=== PATIENT | female | born 1960 | race African-American/Black ===

== ENCOUNTER 2019-09-04 08:00 | Inpatient (IN) | payer BC ==
[2019-08-29 11:22] VITALS: BMI 44.2
[2019-09-04] MEDS ORDERED: MIDAZOLAM HCL 2 MG/2 ML SINGLE DOSE VIAL ONE (13:01)
[2019-09-04] MEDS ORDERED: ROCURONIUM BROMIDE 50 MG/5 ML SYRINGE ONE ×2 (13:01→15:52)
[2019-09-04] MEDS ORDERED: PROPOFOL 20 ML ONE (13:01)
[2019-09-04] MEDS ORDERED: DEXTROSE 50%-WATER 25 GM/50 ML DISP.SYRIN ONE (13:13)
[2019-09-04] MEDS ORDERED: DEXTROSE 50%-WATER 25 GM/50 ML DISP.SYRIN IVPUSH ONE (13:15)
[2019-09-04] MEDS ORDERED: BUPIVACAINE HCL/PF 0.25% (2.5MG/ML) 10 ML VIAL ONE (13:24)
[2019-09-04] MEDS ORDERED: ceFAZolin SODIUM 1 GM VIAL IVPB ONE (14:05)
[2019-09-04] MEDS ORDERED: DEXAMETHASONE SOD PHOSPHATE 4 MG/1 ML VIAL ONE (14:07)
[2019-09-04] MEDS ORDERED: ceFAZolin SODIUM 1 GM VIAL ONE (14:07)
[2019-09-04] MEDS ORDERED: EPHEDRINE SULFATE/0.9% NACL/PF 50 MG/10 ML SYRINGE NR ONE (14:15)
[2019-09-04] MEDS ORDERED: BUPIVACAINE HCL/PF 2.5 MG/ML - 30 ML VIAL IJ ONE (14:46)
[2019-09-04] MEDS ORDERED: ONDANSETRON 4 MG/2 ML VIAL IVPUSH PRN ×2 (15:14→17:01)
[2019-09-04] MEDS ORDERED: LACTATED RINGERS SOLUTION 1,000 ML IV SCH (15:15)
[2019-09-04] MEDS ORDERED: NEOSTIGMINE METHYLSULFATE 0.5 MG/ML - 10 ML MDV ONE (16:43)
[2019-09-04] MEDS ORDERED: GLYCOPYRROLATE 0.2 MG/1 ML VIAL ONE (16:43)
[2019-09-04] MEDS ORDERED: BUPIVACAINE HCL/PF 0.25% (2.5MG/ML) 10 ML VIAL IJ ONE (16:45)
--- NOTE | 2019-09-04 17:15 | OP ---
Operative Note - Note: Operative Date: 09/04/19 Pre-Operative Diagnosis: Morbid Obesity. Diabetes Mellitus. Coronary Artery Disease. Elevated Liver function tests Operation: Laparoscopic Vertical Sleeve Gastrectomy. Wedge Biopsy of left lobe of liver. Laparoscopic Lysis of Adhesions. Oversewing of Gastric Staple Line. Diagnostic Laparoscopy Findings: Massive adhesions between left lobe of liver and anterior stomach secondary to previous gastric surgery. Adhesions were dense and unable to separate distally in Antrum without risk of injury to the stomach wall. Vertical sleeve gastrectomy performed vertically and begun at beginning of antrum. Left lobe of liver very enlarged. Post-Operative Diagnosis: Same as Pre-op (Abdominal adhesions; Hepatomegaly) Surgeon: Juma Rangel Tobacco Primer Machine Operator: Kuldip Wilde Anesthesia: General Specimens Removed: Greater curve of stomach. Wedge biopsy of left lobe of liver Estimated Blood Loss (mls): 30 Operative Report Dictated: Yes
[2019-09-04] MEDS ORDERED: ACETAMINOPHEN INJECTION 100 ML IVPB ONE (17:36)
[2019-09-04] MEDS: ACETAMINOPHEN 1000 MG/100 ML VIAL (NON FORMULARY) IVPB SCH ×2 (17:50→21:37)
[2019-09-04] MEDS: METOCLOPRAMIDE HCL INJECTION 10 MG/2 ML VIAL IVPUSH SCH ×3 (18:15→23:16)
[2019-09-04] MEDS ORDERED: METOCLOPRAMIDE HCL INJECTION 10 MG/2 ML VIAL ONE (18:16)
[2019-09-04 18:23] LABS: HEMATOCRIT 34.1 % (32.4-45.2); HEMOGLOBIN 10.6 GM/dL (10.7-15.3); MCH 29.8 pg (25.7-33.7); MCHC 31.3 g/dl (32.0-36.0); MEAN CELL VOLUME 95.5 fl (80-96); MEAN PLT VOLUME 10.7 fl (7.5-11.1); PLATELET COUNT 191 K/MM3 (134-434); RBC 3.57 M/mm3 (3.60-5.2); RDW 14.9 % (11.6-15.6); WHITE BLOOD COUNT 8.4 K/mm3 (4.0-10.0)
[2019-09-04 18:56] LABS: ALBUMIN 3.5 g/dl (3.4-5.0); BILIRUBIN,TOTAL 0.3 mg/dL (0.2-1); BLOOD UREA NITROGEN 45.3 mg/dL (7-18); CREATININE 1.9 mg/dL (0.55-1.3); POTASSIUM 5.6 mmol/L (3.5-5.1); TOT PROT 7.4 g/dl (6.4-8.2)
[2019-09-04] MEDS: HYDROmorphone HCl 2 MG/ML VIAL IVPB PRN ×2 (19:15→23:25)
[2019-09-04] MEDS ORDERED: HYDROmorphone HCl 2 MG/ML VIAL ONE (19:29)
[2019-09-04] MEDS: SODIUM CHLORIDE 1,000 ML IV SCH (21:36)
[2019-09-04] MEDS: FAMOTIDINE 20 MG/50 ML IVPB 20 MG/50 ML MG IVPB SCH (21:38)
[2019-09-05] MEDS: SODIUM CHLORIDE 1,000 ML IV SCH ×2 (00:15→09:53)
[2019-09-05 01:11] LABS: HEMATOCRIT 34.5 % (32.4-45.2); HEMOGLOBIN 10.6 GM/dL (10.7-15.3); MCH 29.6 pg (25.7-33.7); MCHC 30.7 g/dl (32.0-36.0); MEAN CELL VOLUME 96.5 fl (80-96); PLATELET COUNT 204 K/MM3 (134-434); RBC 3.58 M/mm3 (3.60-5.2); RDW 14.9 % (11.6-15.6); WHITE BLOOD COUNT 12.2 K/mm3 (4.0-10.0)
[2019-09-05 01:37] LABS: ALBUMIN 3.5 g/dl (3.4-5.0); BILIRUBIN,TOTAL 0.3 mg/dL (0.2-1); BLOOD UREA NITROGEN 42.2 mg/dL (7-18); CALCIUM 9.1 mg/dL (8.5-10.1); CREATININE 1.8 mg/dL (0.55-1.3); TOT PROT 7.5 g/dl (6.4-8.2)
[2019-09-05 01:50] LABS: POTASSIUM 6.1 mmol/L (3.5-5.1)
[2019-09-05] MEDS ORDERED: SODIUM POLYSTYRENE SULFONATE 15 GM/60 ML BOTTLE RC ONE (02:07)
[2019-09-05] MEDS ORDERED: SODIUM POLYSTYRENE SULFONATE 15 GM/60 ML BOTTLE PO ONE (02:07)
[2019-09-05] MEDS: ACETAMINOPHEN 1000 MG/100 ML VIAL (NON FORMULARY) IVPB SCH ×3 (03:18→16:59)
[2019-09-05] MEDS: METOCLOPRAMIDE HCL INJECTION 10 MG/2 ML VIAL IVPUSH SCH ×3 (06:06→16:59)
[2019-09-05] MEDS: HYDROmorphone HCl 2 MG/ML VIAL IVPB PRN ×2 (06:17→21:09)
--- NOTE | 2019-09-05 07:55 | SURG ---
Surgery Dial Mounter Note Dial Mounter: Kuldip Wilde PA-C (Suzy) Date of Service: 09/04/19 Diagnosis: morbid obesity, diabetes, coronary artery disease, elevated liver enzymes Procedure: Laparoscopic Vertical Sleeve Gastrectomy. Wedge Biopsy of left lobe of liver. Laparoscopic Lysis of Adhesions. Oversewing of Gastric Staple Line. Diagnostic Laparoscopy I was present for the entirety of the operative procedure. For further detail, please refer to operative report. Visit type - Case Type Case Type: Scheduled - Emergency Emergency Visit: No - New patient This patient is new to me today: Yes Date on this admission: 09/05/19 - Critical Care Critical Care patient: No
[2019-09-05 08:20] LABS: HEMATOCRIT 33.3 % (32.4-45.2); HEMOGLOBIN 10.1 GM/dL (10.7-15.3); MCH 29.3 pg (25.7-33.7); MCHC 30.4 g/dl (32.0-36.0); MEAN CELL VOLUME 96.3 fl (80-96); MEAN PLT VOLUME 10.7 fl (7.5-11.1); PLATELET COUNT 215 K/MM3 (134-434); RBC 3.46 M/mm3 (3.60-5.2); RDW 15.3 % (11.6-15.6)
[2019-09-05 08:29] LABS: ALBUMIN 3.4 g/dl (3.4-5.0); BILIRUBIN,TOTAL 0.5 mg/dL (0.2-1); BLOOD UREA NITROGEN 41.6 mg/dL (7-18); CALCIUM 8.8 mg/dL (8.5-10.1); CREATININE 1.8 mg/dL (0.55-1.3); POTASSIUM 5.8 mmol/L (3.5-5.1); TOT PROT 7.6 g/dl (6.4-8.2)
[2019-09-05] MEDS: FAMOTIDINE 20 MG/50 ML IVPB 20 MG/50 ML MG IVPB SCH ×2 (09:54→21:08)
--- NOTE | 2019-09-05 10:21 | CON.CARD ---
Consult Consult Specialty:: Cardiology Referred by:: Dr. Rangel Reason for Consultation:: Cardiac evaluation for CAD, s/p gastric sleeve - History of Present Illness Chief Complaint: Elective gastric sleeve History of Present Illness: 58 year-old obese woman with a PMHx of HTN, DM on insulin, HLD, CAD s/p mid LAD PCI-MICHELLE 04/22/18, s/p toe amputation, right eye blindness s/p sleeve gastrectomy in 2016 in [facility] and OA admitted 09/04/19 for elective sleeve gastrectomy. He was seen and cleared by Dr. Srinivasan on 08/25/19. The patient underwent laparoscopic vertical sleeve gastrectomy, wedge biopsy of left liver and lysis of adhesion 09/05/19. She tolerated the operation well. The patient appears comfortable at the time of exam. She has mild LUQ pain. She reports no chest pain, shortness of breath, palpitation or dizziness. Cardiac tests: Echo 03/29/18: Normal LV size, wall motion and systolic function. LVEF = 65%. Normal RV. Normal LA and RA in size. No significant valvular abnormalities. Treadmill exercise nuclear stress test 03/29/18: Small and mild reversible defect in the mid to distal anterior wall. Normal LV systolic function. LVEF 57%. Cardiac cath 04/22/18: Moderate distal left main and one vessel CAD:Distal LMCA with eccentric 50% stenosis. LAD with mild-moderate disease at prox vessel (MLA 3.9 mm2), severe stenosis at mid LAD (MLA 1.06 mm2). Large Diag1 with moderate disease. Large ramus is patent. True LCX is small with moderate disease in small OM1.RCA with early bifurcation, moderate lesions at mid and distal RCA and at PDA. Successful OCT guided precision PCI of mid LAD with MICHELLE Synergy 3.0/38 mm stent, post-dilated with 3.0,3.5 and POT with 4.0 mm NC balloons. - History Source History Provided By: Patient, Medical Record Limitations to Obtaining History: No Limitations - Past Medical History Cardio/Vascular: Yes: CAD, HTN Hepatobiliary: Yes: Other Musculoskeletal: Yes: Osteoarthritis - Smoking History Smoking history: Never smoked Have you smoked in the past 12 months: No Home Medications - Allergies Allergies/Adverse Reactions: Allergies Allergy/AdvReac Type Severity Reaction Status Date / Time No Known Allergies Allergy Verified 09/04/19 11:41 - Home Medications Home Medications: Ambulatory Orders Aspirin [Aspirin EC] 81 mg PO DAILY 08/29/19 Atorvastatin Ca [Lipitor] 20 mg PO HS 08/29/19 Cyanocobalamin (Vitamin B-12) [Vitamin B12] 1 tab PO DAILY 08/29/19 Gabapentin 900 mg PO HS 08/29/19 Gabapentin [Neurontin -] 300 mg PO BID 08/29/19 Insulin Aspart [Novolog] 20 unit SQ AC 08/29/19 Insulin Glargine,Hum.rec.anlog [Lantus] 50 iu SQ HS 08/29/19 Lisinopril 10 mg PO DAILY 08/29/19 Multivitamins [Tab-A-Vit -] 1 tab PO DAILY 08/29/19 Review of Systems - Review of Systems Constitutional: reports: No Symptoms Eyes: reports: No Symptoms HENT: reports: No Symptoms Neck: reports: No Symptoms Cardiovascular: reports: No Symptoms Respiratory: reports: No Symptoms Gastrointestinal: reports: Abdominal Pain Genitourinary: reports: No Symptoms Breasts: reports: No Symptoms Reported Musculoskeletal: reports: No Symptoms Integumentary: reports: No Symptoms Neurological: reports: No Symptoms Endocrine: reports: No Symptoms Hematology/Lymphatic: reports: No Symptoms Vital Signs: Vital Signs Temperature 98.1 F 09/05/19 06:00 Pulse Rate 80 09/05/19 06:00 Respiratory Rate 18 09/05/19 06:00 Blood Pressure 139/62 09/05/19 06:00 O2 Sat by Pulse Oximetry (%) 100 09/05/19 01:00 General: Well developed. Obese. No acute distress. Head: Normocephalic. Atraumatic, Eyes: PERRLA, EOMI. Sclerae anicteric. Conjunctivae clear. Neck: Supple. No JVD. No bruits. Heart: Normal S1, S2: Regular rhythm and rate. No murmur. No gallop or rub. Lungs: Symmetrical air entry. Clear to auscultation. No crackles. No wheezing or rhonchi. Abdomen: Soft. Diffuse tenderness. Extremities: No edema. No clubbing or cyanosis. Neuro: Intact, no focal findings. AAO X3. - Other Data Labs, Other Data: CBC, BMP 09/05/19 05:45 09/05/19 05:45 Assessment/Plan 58 year-old obese woman with a PMHx of HTN, DM on insulin, HLD, CAD s/p mid LAD PCI-MICHELLE 04/22/18, s/p toe amputation, right eye blindness s/p sleeve gastrectomy in 2015 in [facility] and OA admitted 09/04/19 for elective sleeve gastrectomy. He was seen and cleared by Dr. Srinivasan on 08/25/19. The patient underwent laparoscopic vertical sleeve gastrectomy, wedge biopsy of left liver and lysis of adhesion 09/05/19. 1) Post elective aparoscopic vertical sleeve gastrectomy, wedge biopsy of left liver and lysis of adhesion. Doing well. 2) CAD, s/p mid LAD PCI-MICHELLE 04/22/18. No recurrent chest pain. Obtaine post op ECG. Resume aspirin and atorvastatin.
--- NOTE | 2019-09-05 10:54 | HP ---
Admitting History and Physical - Primary Care Physician PCP: Edie Pierre - Admission Chief Complaint: S/P sleeve gastrectomy History of Present Illness: 58 year-old obese woman with a PMHx of HTN, DM on insulin, HLD, CAD s/p mid LAD PCI-MICHELLE 04/22/18, s/p toe amputation, right eye blindness s/p sleeve gastrectomy in 2016 in [facility] and OA admitted 09/04/19 for elective sleeve gastrectomy. Operative Date: 09/04/19 Pre-Operative Diagnosis: Morbid Obesity. Diabetes Mellitus. Coronary Artery Disease. Elevated Liver function tests Operation: Laparoscopic Vertical Sleeve Gastrectomy. Wedge Biopsy of left lobe of liver. Laparoscopic Lysis of Adhesions. Oversewing of Gastric Staple Line. Diagnostic Laparoscopy Findings: Massive adhesions between left lobe of liver and anterior stomach secondary to previous gastric surgery. Adhesions were dense and unable to separate distally in Antrum without risk of injury to the stomach wall. Vertical sleeve gastrectomy performed vertically and begun at beginning of antrum. Left lobe of liver very enlarged. Post-Operative Diagnosis: Same as Pre-op (Abdominal adhesions; Hepatomegaly) History Source: Patient, Medical Record Limitations to Obtaining History: No Limitations - Past Medical History Cardiovascular: Yes: CAD, HTN Hepatobiliary: Yes: Other Musculoskeletal: Yes: Osteoarthritis - Smoking History Smoking history: Never smoked Have you smoked in the past 12 months: No Home Medications - Allergies Allergies/Adverse Reactions: Allergies Allergy/AdvReac Type Severity Reaction Status Date / Time No Known Allergies Allergy Verified 09/04/19 11:41 - Home Medications Home Medications: Ambulatory Orders Aspirin [Aspirin EC] 81 mg PO DAILY 08/29/19 Atorvastatin Ca [Lipitor] 20 mg PO HS 08/29/19 Cyanocobalamin (Vitamin B-12) [Vitamin B12] 1 tab PO DAILY 08/29/19 Gabapentin 900 mg PO HS 08/29/19 Gabapentin [Neurontin -] 300 mg PO BID 08/29/19 Insulin Aspart [Novolog] 20 unit SQ AC 08/29/19 Insulin Glargine,Hum.rec.anlog [Lantus] 50 iu SQ HS 08/29/19 Lisinopril 10 mg PO DAILY 08/29/19 Multivitamins [Tab-A-Vit -] 1 tab PO DAILY 08/29/19 Review of Systems Findings/Remarks: C/O LUQ post op pain. Denies any N/V Had 2 BM's overnight due to Kayexalate - Review of Systems Constitutional: reports: No Symptoms Eyes: reports: No Symptoms HENT: reports: No Symptoms Neck: reports: No Symptoms Cardiovascular: reports: No Symptoms Respiratory: reports: No Symptoms Gastrointestinal: reports: Abdominal Pain Genitourinary: reports: No Symptoms Breasts: reports: No Symptoms Reported Musculoskeletal: reports: No Symptoms Integumentary: reports: No Symptoms Neurological: reports: No Symptoms Endocrine: reports: No Symptoms Hematology/Lymphatic: reports: No Symptoms Psychiatric: reports: No Symptoms Physical Examination Vital Signs: Vital Signs Temperature 98.0 F 09/05/19 10:00 Pulse Rate 71 09/05/19 10:00 Respiratory Rate 18 09/05/19 10:00 Blood Pressure 137/82 09/05/19 10:00 O2 Sat by Pulse Oximetry (%) 94 L 09/05/19 09:00 Constitutional: Yes: Well Nourished, No Distress, Calm, Obese Cardiovascular: Yes: Regular Rate and Rhythm Respiratory: Yes: Regular, CTA Bilaterally Gastrointestinal: Yes: Soft, Abdomen, Obese, Hypoactive Bowel Sounds Renal/: Yes: WNL Musculoskeletal: Yes: Muscle Weakness Extremities: Yes: WNL Edema: No Neurological: Yes: Alert, Oriented Psychiatric: Yes: Alert, Oriented Labs: CBC, BMP 09/05/19 05:45 09/05/19 05:45 Imaging - Results Other: Pending (GI series- negative for any leaks) Problem List - Problems (1) HAROLDO (acute kidney injury) Assessment/Plan: -Baseline Cr at 1.2 -Nephrology consult -Continue IVF -Renal U/S Problems reviewed: Yes Code(s): N17.9 - ACUTE KIDNEY FAILURE, UNSPECIFIED (2) Hyperkalemia Assessment/Plan: -Receive kayexalate overnight -Had 2 BM's yesterday -K is still elevated -Clear liquid lo0w K diet -Lokelma 10 mg once -nephrology consult Problems reviewed: Yes Code(s): E87.5 - HYPERKALEMIA (3) S/P laparoscopic sleeve gastrectomy Assessment/Plan: -Surgery following -Start Clear Liquids -GI series negative for any leak -Pain control Problems reviewed: Yes Code(s): Z98.84 - BARIATRIC SURGERY STATUS (4) Elevated LFTs Assessment/Plan: -Baseline normal -Enlarged fatty liver -Also Liver injury 2/2 to liver biopsy Problems reviewed: Yes Code(s): R79.89 - OTHER SPECIFIED ABNORMAL FINDINGS OF BLOOD CHEMISTRY (5) Anemia Assessment/Plan: -Chronic -H/H stable -Check iron, thyroid profile + B12 Problems reviewed: Yes Code(s): D64.9 - ANEMIA, UNSPECIFIED Assessment/Plan See problem list
[2019-09-05] MEDS: POLYETHYLENE GLYCOL 3350 119 GM BTL PO SCH (11:52)
[2019-09-05] MEDS ORDERED: SODIUM ZIRCONIUM CYCLOSILICATE (LOKELMA) 10 GM PACKET PO ONE (12:00)
[2019-09-05] MEDS ORDERED: SODIUM ZIRCONIUM CYCLOSILICATE (LOKELMA) 5 GM PACKET PO ONE (12:00)
[2019-09-05] MEDS ORDERED: SODIUM CHLORIDE 0.45% 1,000 ML IV SCH (13:00)
--- NOTE | 2019-09-05 13:32 | CONSULT ---
Consult Consult Specialty:: Nephrology Reason for Consultation:: hyperkalemia and haroldo - History of Present Illness Chief Complaint: s/p gastric sleave History of Present Illness: Pt is a 58 year old female with pmhx of htn, dm, cad who was admitted for sleeve gastrectomy. She was found to develop haroldo and found to have hyperkalemia and I was called to evaluate her. She denies shortness of breath. SHe denies chest pain or palpitations. SHe denies history of ckd. She denies dysuria or hematuria. SHe is awake and alert. She denies chest pain or palpitations. She was on lisinopril at home. - History Source History Provided By: Patient - Past Medical History Cardio/Vascular: Yes: CAD, HTN Hepatobiliary: Yes: Other Musculoskeletal: Yes: Osteoarthritis - Smoking History Smoking history: Never smoked Have you smoked in the past 12 months: No Home Medications - Allergies Allergies/Adverse Reactions: Allergies Allergy/AdvReac Type Severity Reaction Status Date / Time No Known Allergies Allergy Verified 09/04/19 11:41 - Home Medications Home Medications: Ambulatory Orders Aspirin [Aspirin EC] 81 mg PO DAILY 08/29/19 Atorvastatin Ca [Lipitor] 20 mg PO HS 08/29/19 Cyanocobalamin (Vitamin B-12) [Vitamin B12] 1 tab PO DAILY 08/29/19 Gabapentin 900 mg PO HS 08/29/19 Gabapentin [Neurontin -] 300 mg PO BID 08/29/19 Insulin Aspart [Novolog] 20 unit SQ AC 08/29/19 Insulin Glargine,Hum.rec.anlog [Lantus] 50 iu SQ HS 08/29/19 Lisinopril 10 mg PO DAILY 08/29/19 Multivitamins [Tab-A-Vit -] 1 tab PO DAILY 08/29/19 Family Medical History Family History: Denies Review of Systems - Review of Systems Constitutional: reports: No Symptoms Eyes: reports: No Symptoms HENT: reports: No Symptoms Neck: reports: No Symptoms Cardiovascular: reports: No Symptoms Respiratory: reports: No Symptoms Gastrointestinal: reports: No Symptoms Genitourinary: reports: No Symptoms Musculoskeletal: reports: No Symptoms Integumentary: reports: No Symptoms Neurological: reports: No Symptoms Endocrine: reports: No Symptoms Hematology/Lymphatic: reports: No Symptoms Psychiatric: reports: No Symptoms Physical Exam Vital Signs: Vital Signs Temperature 98.0 F 09/05/19 10:00 Pulse Rate 71 09/05/19 10:00 Respiratory Rate 18 09/05/19 10:00 Blood Pressure 137/82 09/05/19 10:00 O2 Sat by Pulse Oximetry (%) 94 L 09/05/19 09:00 Constitutional: Yes: Calm Eyes: Yes: Conjunctiva Clear HENT: Yes: Atraumatic Cardiovascular: Yes: S1, S2 Respiratory: Yes: CTA Bilaterally Gastrointestinal: Yes: Soft Renal/: Yes: WNL Musculoskeletal: Yes: WNL Edema: No Neurological: Yes: Oriented Psychiatric: Yes: Oriented Labs: CBC, BMP 09/05/19 05:45 09/05/19 05:45 Imaging - Results X-ray: Report Reviewed Problem List - Problems (1) HAROLDO (acute kidney injury) Code(s): N17.9 - ACUTE KIDNEY FAILURE, UNSPECIFIED (2) Anemia Code(s): D64.9 - ANEMIA, UNSPECIFIED (3) Hyperkalemia Code(s): E87.5 - HYPERKALEMIA (4) S/P laparoscopic sleeve gastrectomy Code(s): Z98.84 - BARIATRIC SURGERY STATUS Assessment/Plan Current Medications Generic Name Dose Route Start Last Admin Trade Name Freq PRN Reason Stop Dose Admin Acetaminophen 1,000 mg 09/04/19 15:15 09/05/19 09:54 Ofirmev Injection - IVPB 09/05/19 15:15 1,000 mg Q6H BIJAN Administration Famotidine/Sodium Chloride 20 mg in 50 mls @ 100 mls/hr 09/04/19 22:00 09/05/19 09:54 Pepcid 20 Mg Premixed Ivpb - IVPB 100 mls/hr BID BIJAN Administration Sodium Chloride 1,000 mls @ 125 mls/hr 09/05/19 13:00 09/05/19 13:35 1/2 Normal Saline IV 125 mls/hr ASDIR BIJAN Administration Metoclopramide HCl 10 mg 09/04/19 17:15 09/05/19 11:51 Reglan Injection - IVPUSH 10 mg Q6H BIJAN Administration Ondansetron HCl 4 mg 09/04/19 17:01 Zofran Injection IVPUSH Q4H PRN NAUSEA AND/OR VOMITING Oxycodone HCl 5 mg 09/05/19 11:34 09/05/19 13:38 Roxicodone - PO 5 mg Q4H PRN Administration PAIN LEVEL 6-10 Polyethylene Glycol 17 gm 09/05/19 11:45 09/05/19 11:52 Miralax (For Daily Use) - PO 17 grams DAILY BIJAN Administration Impression 1. HAROLDO 2. hyperkalemia 3. htn 4. dm 5. s/p sleeve Plan - change fluids to 1/2 ns - potassium improving - she did get a dose of lokelma - do not give kayexylate - follow repeat labs - cont to monitor renal function - check ua, urine electrolytes and urine psychiatric aides teacher
[2019-09-05] MEDS: oxyCODONE HCL 5 MG TABLET PO PRN ×2 (13:38→18:42)
--- NOTE | 2019-09-05 15:23 | OP ---
DATE OF OPERATION: PREOPERATIVE DIAGNOSES. 1. Morbid obesity. 2. Diabetes mellitus. 3. Coronary artery disease. 4. Elevated liver function tests. POSTOPERATIVE DIAGNOSES: 1. Morbid obesity. 2. Diabetes mellitus. 3. Coronary artery disease. 4. Elevated liver function tests. 5. Hepatomegaly. 6. Abdominal adhesions. PROCEDURE PERFORMED: 1. Laparoscopic vertical sleeve gastrectomy. 2. Wedge biopsy of the left lobe of the liver. 3. Laparoscopic lysis of adhesions. 4. Over sewing of gastric staple line. 5. Diagnostic laparoscopy. OPERATING SURGEON: Juma Rangel MD PROMOTIONS COORDINATOR: JOEL Sauer ANESTHESIA: General. OPERATIVE PROCEDURE: The patient was brought into the operating room and placed on the OR table in the supine position. All precautions were taken initially including padding for the back and the feet and Venodyne boots were placed on both lower extremities. At that point the abdomen was prepped and draped in the usual manner. A Veress needle was placed in the left upper quadrant and a pneumoperitoneum was established. Under direct vision with a No. 5 trocar and a camera, the No. 5 trocar was placed through the right upper quadrant into the left upper quadrant of the abdomen. Through the trocar a laparoscopic camera was placed. Immediately upon placing the camera, there was noted to be a lot of adhesions in the midline and mostly in the right upper quadrant of the abdomen. Under direct vision a No. 5 bladeless trocar was placed laterally onto the left costal margin. Using that as a camera port a No. 15 bladeless trocar was placed in the midline in a supraumbilical position. There were adhesions between the omentum and the falciform. These were attempted to be lysed but they were very thick and it was difficult to do that. Therefore, a No. 5 bladeless trocar was placed in the right upper quadrant. At this point, a Donato liver retractor was placed in the epigastrium to retract the left lobe of the liver. When this was placed the left lobe was attempted to be lifted but there were a lot of adhesions between the left lobe of the liver and the anterior wall of the stomach from previous gastric surgery. The patient was then placed in a 20-degree reverse Trendelenburg position by Anesthesia. Attempts were used to dissect the adhesions between the anterior stomach wall and the undersurface of the left lobe of the liver. This was done very gentle and carefully to not cause any injury to either the liver or the stomach especially the stomach. This was done up on the lesser curvature side of the stomach just below the fundus. The adhesions were gently dissected bluntly and then the laparoscopic system was used to lyse the adhesions but at a better view of the anterior stomach wall could be performed. This continued down the stomach; however, in the area at the distal body beginning of the antrum, the adhesions between the stomach and the liver were especially dense. Attempts to separate these with blunt dissection were unsuccessful. Because the patient was on blood thinners secondary to her coronary artery disease and she is going to have to be replaced on them afterwards, the decision was made not to cut into the liver to try to separate the stomach. However, if there was no cutting into the liver this would put the stomach at risk and it was decided; therefore, that the antrum could not be exposed. Attention was then directed to the body and fundus of the stomach. As the teacher's assistant surgeon retracted the scar tissues, I retracted the omentum and short gastric vessels laterally. The LigaSure device was then used to dissect the adhesions further off the stomach wall. This was done in a vertical direction until the fundus was located. Attention was now directed to the stomach where a No. 33 bougie was placed by Anesthesia and the bougie was held along the lesser curve. Attempts to clean the stomach wall off not only the anterior cervical but posterior was successful along the body but was not successful in the area of the fundus because of tremendous scar tissue between the posterior wall of the stomach and the retroperitoneum. There was a fear that too much damage could be performed with the blood vessels and also for the perforation of the stomach wall that it would be difficult to repair. At this point rosario were performed the first 2 being back load rosario 6 cm in length along the bougie starting at the end of the body of the stomach. This continued in a superior vertical direction and then a purple load staple was performed and this was done just at the beginning of the antrum. At this point the sleeve gastrectomy at the greater curvature of the stomach was removed and sent off the field as specimen to Pathology. Because of the risk of potential bleeding in a patient that would be on blood thinners, the entire staple line was sewed from the very anterior portion just at the fundus level all the way down to the end of the body. This was done in a continuous fashion with the Endo Stitch device over sewing the staple line so that no bleeding would be performed. At this juncture, saline was placed around the staple line and Anesthesia now reinserted an orogastric tube. It was to the tube which showed the entire stomach distended, no obstruction was noted and no leaks were noted. At this point attention was directed to the left lobe of the liver which was enlarged and the patient had an elevated alkaline phosphatase preoperatively. Therefore, a wedge biopsy was taken with the LigaSure which went through the capsule and parenchyma and a wedge biopsy was sent out of the field as specimen to Pathology. The parenchyma had some mild to moderate bleeding which was controlled with electrocautery. Surgicel was then placed along the staple line and along the liver biopsy area and under direct vision all trocars were removed and pneumoperitoneum was released but the No.15 trocar site was closed with the endo closure device to prevent internal hernia and to prevent bleeding. All trocar sites then received 0.25% Marcaine. The No. 15 site was closed with 3-0 Vicryl in the subcutaneous tissue and all trocar sites were closed with 4-0 Biosyn in a subcuticular fashion. Dressings were applied. The patient awoke from anesthesia and transferred out of the operating room to the recovering room in stable condition. EXPECTED BLOOD LOSS: 30 mL. Patient was transferred to the recovery room in stable condition. Justina [id number]
[2019-09-05 16:38] LABS: BLOOD UREA NITROGEN 36.9 mg/dL (7-18); CALCIUM 8.9 mg/dL (8.5-10.1); CREATININE 1.7 mg/dL (0.55-1.3); POTASSIUM 5.1 mmol/L (3.5-5.1)
[2019-09-05 17:13] LABS: EPI CELLS 17 /uL (0-25.1); HYALINE CASTS 1 /uL (0-3.1); URINE APPEARANCE CLEAR; URINE BACTERIA 236 /uL (0-1359); URINE BILIRUBIN NEGATIVE (NEGATIVE); URINE COLOR YELLOW; URINE GLUCOSE (UA) NEGATIVE (NEGATIVE); URINE KETONE NEGATIVE (NEGATIVE); URINE LEUK ESTERASE NEGATIVE (NEGATIVE); URINE NITRITE NEGATIVE (NEGATIVE); URINE PROTEIN 1+ (NEGATIVE); URINE RBC 6 /uL (0-23.9); URINE UROBILINOGEN 0.2 mg/dL (0.2-1.0); URINE WBC 6 /uL (0-25.8)
--- NOTE | 2019-09-05 17:40 | PN ---
Progress Note (short form) - Note Progress Note: POD#1 Afebrile; VSS Renal, Cardiology, Medicine notes appreciated Tolerating PO clear liquids- 3 oz po tid Pt OOB earlier C/O minor ache near trocar incisions P/E- Abd- all trocar sites clean, dry Ext- no swelling, no edema UGI- no leak, no obstruction WBC--12.0 H/H- 10.1/33.3 BUN/CR-36.9/1.7 (pre-op 63/1.79 in PMD office) K+- 5.1 (5.0 pre-op in PMD office) P- Continue PO liquids- 3 oz PO TID + sips of water Follow labs Continue DVT prophylaxis- ambulation, SCD's
[2019-09-05] MEDS ORDERED: oxyCODONE HCL 5 MG TABLET PO PRN (20:55)
[2019-09-06] MEDS: METOCLOPRAMIDE HCL INJECTION 10 MG/2 ML VIAL IVPUSH SCH ×3 (00:03→10:48)
[2019-09-06] MEDS: HYDROmorphone HCl 2 MG/ML VIAL IVPB PRN (02:57)
[2019-09-06 08:06] LABS: BASO % 0.6 % (0-2.0); EOS % 6.9 % (0-4.5); HEMATOCRIT 29.2 % (32.4-45.2); HEMOGLOBIN 9.1 GM/dL (10.7-15.3); LYMPH % 16.6 % (8-40); MCH 30.1 pg (25.7-33.7); MCHC 31.3 g/dl (32.0-36.0); MEAN CELL VOLUME 96.2 fl (80-96); MEAN PLT VOLUME 11.4 fl (7.5-11.1); MONO % 5.7 % (3.8-10.2); NEUT % 70.2 % (42.8-82.8); PLATELET COUNT 164 K/MM3 (134-434); RBC 3.03 M/mm3 (3.60-5.2); RDW 15.1 % (11.6-15.6); WHITE BLOOD COUNT 8.9 K/mm3 (4.0-10.0)
[2019-09-06 08:19] LABS: ALBUMIN 3.3 g/dl (3.4-5.0); BILIRUBIN,TOTAL 0.5 mg/dL (0.2-1); BLOOD UREA NITROGEN 28.4 mg/dL (7-18); CALCIUM 9.1 mg/dL (8.5-10.1); CREATININE 1.3 mg/dL (0.55-1.3); TOT PROT 6.9 g/dl (6.4-8.2)
[2019-09-06 08:23] VITALS: BP 168/82; PULSE 85; TEMP 98.4
--- NOTE | 2019-09-06 09:21 | PN ---
Progress Note, Physician - Current Medication List Current Medications: Active Medications Atorvastatin Calcium (Lipitor -) [address] [facility] Hydromorphone HCl (Dilaudid Vial -) 1 mg IVPB Q6H PRN PRN Reason: PAIN LEVEL 6-10 Last Admin: 09/06/19 02:57 Dose: 1 mg Documented by: Famotidine/Sodium Chloride (Pepcid 20 Mg Premixed Ivpb -) 20 mg in 50 mls @ 100 mls/hr IVPB BID [facility] Last Admin: 09/05/19 21:08 Dose: 100 mls/hr Documented by: Sodium Chloride (1/2 Normal Saline) 1,000 mls @ 125 mls/hr IV ASDIR [facility] Last Admin: 09/05/19 13:35 Dose: 125 mls/hr Documented by: Metoclopramide HCl (Reglan Injection -) [address] [facility] Last Admin: 09/06/19 05:41 Dose: 10 mg Documented by: Nebivolol (Bystolic -) [address] [facility] Ondansetron HCl (Zofran Injection) 4 mg IVPUSH Q4H PRN PRN Reason: NAUSEA AND/OR VOMITING Oxycodone HCl (Roxicodone -) 5 mg PO Q4H PRN PRN Reason: PAIN LEVEL 1-5 Polyethylene Glycol (Miralax (For Daily Use) -) [address] [facility] Last Admin: 09/05/19 11:52 Dose: 17 grams Documented by: - Objective Vital Signs: Vital Signs Temperature 98.4 F 09/06/19 08:22 Pulse Rate 85 09/06/19 08:22 Respiratory Rate 20 09/06/19 08:22 Blood Pressure 168/82 09/06/19 08:22 O2 Sat by Pulse Oximetry (%) 97 09/06/19 06:00 Cardiovascular: Yes: Regular Rate and Rhythm Respiratory: Yes: Regular, CTA Bilaterally Gastrointestinal: Yes: Normal Bowel Sounds, Soft Edema: No Labs: CBC, BMP 09/06/19 05:40 09/06/19 05:40 Assessment/Plan - Problems (1) HAROLDO (acute kidney injury) Assessment/Plan: -Improved - Laboratory Tests 09/04/19 09/05/19 09/05/19 17:20 00:08 15:35 Creatinine 1.9 H 1.8 H 1.7 H 09/06/19 05:40 Creatinine 1.3 -Baseline Cr at 1.2 -Nephrology consult -Continue IVF -Renal U/S Problems reviewed: Yes Code(s): N17.9 - ACUTE KIDNEY FAILURE, UNSPECIFIED (2) Hyperkalemia Assessment/Plan: -Receive kayexalate overnight -Had 2 BM's yesterday -K is still elevated--5 -Clear liquid lo0w K diet -Lokelma 10 mg once -nephrology consult Problems reviewed: Yes Code(s): E87.5 - HYPERKALEMIA (3) S/P laparoscopic sleeve gastrectomy Assessment/Plan: -Surgery following -Start Clear Liquids -GI series negative for any leak -Pain control Problems reviewed: Yes Code(s): Z98.84 - BARIATRIC SURGERY STATUS (4) Elevated LFTs Assessment/Plan: -Baseline normal -Enlarged fatty liver -Also Liver injury 2/2 to liver biopsy Problems reviewed: Yes Code(s): R79.89 - OTHER SPECIFIED ABNORMAL FINDINGS OF BLOOD CHEMISTRY (5) Anemia Assessment/Plan: -Chronic -H/H stable -Check iron, thyroid profile + B12 Problems reviewed: Yes Code(s): D64.9 - ANEMIA, UNSPECIFIED (6) Hypertension Assessment/Plan: -Start Bystolic 5 mg daily
[2019-09-06] MEDS: FAMOTIDINE 20 MG/50 ML IVPB 20 MG/50 ML MG IVPB SCH (09:42)
[2019-09-06] MEDS: POLYETHYLENE GLYCOL 3350 119 GM BTL PO SCH (09:43)
[2019-09-06] MEDS ORDERED: NEBIVOLOL 5 MG TABLET (FP) PO SCH (10:00)
--- NOTE | 2019-09-06 11:03 | DS ---
Physical Exam: SUBJECTIVE: Patient seen and examined. Sitting in chair at bedside. Tolerating BST1 diet. OOB and ambulating unassisted. Voiding spontaneously. Passing flatus. Denies n/v/f/c, CP, palpitations, SOB or SHAHID. OBJECTIVE: Vital Signs Temperature 98.4 F 09/06/19 08:22 Pulse Rate 85 09/06/19 08:22 Respiratory Rate 20 09/06/19 09:00 Blood Pressure 168/82 09/06/19 08:22 O2 Sat by Pulse Oximetry (%) 97 09/06/19 09:00 PHYSICAL EXAM GENERAL: a&o. nad HEAD: Normal with no signs of trauma. EYES: PERRL, extraocular movements intact, sclera anicteric, conjunctiva clear. NECK: Trachea midline, full range of motion, supple. LUNGS: unlabored respirations on room air HEART: rrr ABDOMEN: obese habitus. all surgical ports c/d/i. EXTREMITIES: 2+ pulses, warm, well-perfused, no edema. PSYCH: Normal mood, normal affect. LABS CBC,CMP WBC 8.9 K/mm3 (4.0-10.0) 09/06/19 05:40 RBC 3.03 M/mm3 (3.60-5.2) L 09/06/19 05:40 Hgb 9.1 GM/dL (10.7-15.3) L 09/06/19 05:40 Hct 29.2 % (32.4-45.2) L 09/06/19 05:40 MCV 96.2 fl (80-96) H 09/06/19 05:40 MCH 30.1 pg (25.7-33.7) 09/06/19 05:40 MCHC 31.3 g/dl (32.0-36.0) L 09/06/19 05:40 RDW 15.1 % (11.6-15.6) 09/06/19 05:40 Plt Count 164 K/MM3 (134-434) D 09/06/19 05:40 MPV 11.4 fl (7.5-11.1) H 09/06/19 05:40 Absolute Neuts (auto) 6.2 K/mm3 (1.5-8.0) 09/06/19 05:40 Neutrophils % 70.2 % (42.8-82.8) 09/06/19 05:40 Lymphocytes % 16.6 % (8-40) 09/06/19 05:40 Monocytes % 5.7 % (3.8-10.2) 09/06/19 05:40 Eosinophils % 6.9 % (0-4.5) H 09/06/19 05:40 Basophils % 0.6 % (0-2.0) 09/06/19 05:40 Nucleated RBC % 0 % (0-0) 09/06/19 05:40 Sodium 144 mmol/L (136-145) 09/06/19 05:40 Potassium 5.0 mmol/L (3.5-5.1) 09/06/19 05:40 Chloride 117 mmol/L (98-107) H 09/06/19 05:40 Carbon Dioxide 21 mmol/L (21-32) 09/06/19 05:40 Anion Gap 7 MMOL/L (8-16) L 09/06/19 05:40 BUN 28.4 mg/dL (7-18) H 09/06/19 05:40 Creatinine 1.3 mg/dL (0.55-1.3) 09/06/19 05:40 Est GFR (CKD-EPI)AfAm 52.00 09/06/19 05:40 Est GFR (CKD-EPI)NonAf 44.87 09/06/19 05:40 POC Glucometer 110 UNITS (80-120) 09/06/19 05:48 Random Glucose 148 mg/dL (74-106) H 09/06/19 05:40 Hemoglobin A1c % 10.8 % (4.2-6.3) H 09/05/19 12:15 Calcium 9.1 mg/dL (8.5-10.1) 09/06/19 05:40 Iron 64 ug/dL (50-175) 09/05/19 15:35 TIBC 256 ug/dL (250-450) 09/05/19 15:35 Iron Saturation 25 % (17.5-39) 09/05/19 15:35 Unsaturated IBC 192 ug/dL (200-275) L 09/05/19 15:35 Ferritin 116.9 ng/ml (8-388) 09/05/19 15:35 Total Bilirubin 0.5 mg/dL (0.2-1) 09/06/19 05:40 AST 86 U/L (15-37) H 09/06/19 05:40 ALT 92 U/L (13-61) H 09/06/19 05:40 Alkaline Phosphatase 183 U/L (45-117) H 09/06/19 05:40 Total Protein 6.9 g/dl (6.4-8.2) 09/06/19 05:40 Albumin 3.3 g/dl (3.4-5.0) L 09/06/19 05:40 Vitamin B12 4507 pg/ml (193-986) H 09/05/19 15:35 TSH 2.62 uIU/ml (0.358-3.74) 09/05/19 15:35 Free T4 0.88 ng/dl (0.76-1.46) 09/05/19 15:35 HOSPITAL COURSE: Date of Admission:09/04/19 Date of Discharge: 09/06/19 The patient was admitted to the Med-Surg Unit after an elective bariatric surgical procedure. Now, POD #2 s/p laprascopic sleeve gastrectomy. The POD #0, the patient ambulated the hallways with assistance. Narcotic and non-narcotic pain management control was achieved with an oral and IV approach. POD #1, she had an UGI and no exravasation, leak or gastric outlet obstruction seen. Started on bariatric stage 1 diet. Mojgan-operative IV ABX were administered. DVT prophylaxis was achieved with SCDs and early ambulation. Of note, patient's K, BUN/Cr elevated prior too surgery. POD #1 transient rise. Returned back to her baseline POD #2. The discharge instructions and an oral pain management plan were reviewed with the patient. All questions answered. Above plan discussed with Dr. Rangel and agreed. Minutes to complete discharge: 35 Visit type - Case Type Case Type: Scheduled - New patient This patient is new to me today: Yes Date on this admission: 09/06/19
--- NOTE | 2019-09-06 11:09 | PN ---
Progress Note, Physician Chief Complaint: The patient appears comfortable at the time of exam. Her incision site pain improved. She reports no chest pain, shortness of breath, palpitation or dizziness. Telemetry reviewed, it showed sinus rhythm without arrhythmia. History of Present Illness: 58 year-old obese woman with a PMHx of HTN, DM on insulin, HLD, CAD s/p mid LAD PCI-MICHELLE 04/22/18, s/p toe amputation, right eye blindness s/p sleeve gastrectomy in 2016 in [facility] and OA admitted 09/04/19 for elective sleeve gastrectomy. He was seen and cleared by Dr. Srinivasan on 08/25/19. The patient underwent laparoscopic vertical sleeve gastrectomy, wedge biopsy of left liver and lysis of adhesion 09/05/19. She tolerated the operation well. - Current Medication List Current Medications: Active Medications Atorvastatin Calcium (Lipitor -) 20 mg PO HS [facility] Hydromorphone HCl (Dilaudid Vial -) 1 mg IVPB Q6H PRN PRN Reason: PAIN LEVEL 6-10 Last Admin: 09/06/19 02:57 Dose: 1 mg Documented by: Famotidine/Sodium Chloride (Pepcid 20 Mg Premixed Ivpb -) 20 mg in 50 mls @ 100 mls/hr IVPB BID [facility] Last Admin: 09/06/19 09:42 Dose: 100 mls/hr Documented by: Sodium Chloride (1/2 Normal Saline) 1,000 mls @ 125 mls/hr IV ASDIR [facility] Last Admin: 09/05/19 13:35 Dose: 125 mls/hr Documented by: Metoclopramide HCl (Reglan Injection -) 10 mg IVPUSH Q6H [facility] Last Admin: 09/06/19 10:48 Dose: Not Given Documented by: Nebivolol (Bystolic -) 5 mg PO DAILY [facility] Last Admin: 09/06/19 09:42 Dose: 5 mg Documented by: Ondansetron HCl (Zofran Injection) 4 mg IVPUSH Q4H PRN PRN Reason: NAUSEA AND/OR VOMITING Oxycodone HCl (Roxicodone -) 5 mg PO Q4H PRN PRN Reason: PAIN LEVEL 1-5 Last Admin: 09/06/19 10:45 Dose: 5 mg Documented by: Polyethylene Glycol (Miralax (For Daily Use) -) 17 gm PO DAILY [facility] Last Admin: 09/06/19 09:43 Dose: 17 grams Documented by: - Objective Vital Signs: Vital Signs Temperature 98.4 F 09/06/19 08:22 Pulse Rate 85 09/06/19 08:22 Respiratory Rate 20 09/06/19 09:00 Blood Pressure 168/82 09/06/19 08:22 O2 Sat by Pulse Oximetry (%) 97 09/06/19 09:00 General: Well developed. Obese. No acute distress. Head: Normocephalic. Atraumatic, Eyes: PERRLA, EOMI. Sclerae anicteric. Conjunctivae clear. Neck: Supple. No JVD. No bruits. Heart: Normal S1, S2: Regular rhythm and rate. No murmur. No gallop or rub. Lungs: Symmetrical air entry. Clear to auscultation. No crackles. No wheezing or rhonchi. Abdomen: Soft. Diffuse tenderness. Extremities: No edema. No clubbing or cyanosis. Neuro: Intact, no focal findings. AAO X3. Labs: CBC, BMP 09/06/19 05:40 09/06/19 05:40 Assessment/Plan 58 year-old obese woman with a PMHx of HTN, DM on insulin, HLD, CAD s/p mid LAD PCI-MICHELLE 04/22/18, s/p toe amputation, right eye blindness s/p sleeve gastrectomy in 2015 in [facility] and OA admitted 09/04/19 for elective sleeve gastrectomy. He was seen and cleared by Dr. Srinivasan on 08/25/19. The patient underwent laparoscopic vertical sleeve gastrectomy, wedge biopsy of left liver and lysis of adhesion 09/05/19. 1) Post elective aparoscopic vertical sleeve gastrectomy, wedge biopsy of left liver and lysis of adhesion. Doing well. 2) CAD, s/p mid LAD PCI-MICHELLE 04/22/18. No recurrent chest pain. Obtaine post op ECG. Resume aspirin and atorvastatin. Outpatient cardiac follow up with Dr. Srinivasan. Please do not hesitate to call us for reconsult at any time if any further que stions or additional issue arises regarding this patient.
--- NOTE | 2019-09-06 11:18 | PN ---
Progress Note, Physician History of Present Illness: Pt seen and examined at bedside. She is awake and alert. She denies shortness of breath. - Current Medication List Current Medications: Active Medications Atorvastatin Calcium (Lipitor -) 20 mg PO HS [facility] Hydromorphone HCl (Dilaudid Vial -) 1 mg IVPB Q6H PRN PRN Reason: PAIN LEVEL 6-10 Last Admin: 09/06/19 02:57 Dose: 1 mg Documented by: Famotidine/Sodium Chloride (Pepcid 20 Mg Premixed Ivpb -) 20 mg in 50 mls @ 100 mls/hr IVPB BID [facility] Last Admin: 09/06/19 09:42 Dose: 100 mls/hr Documented by: Sodium Chloride (1/2 Normal Saline) 1,000 mls @ 125 mls/hr IV ASDIR [facility] Last Admin: 09/05/19 13:35 Dose: 125 mls/hr Documented by: Metoclopramide HCl (Reglan Injection -) 10 mg IVPUSH Q6H [facility] Last Admin: 09/06/19 10:48 Dose: Not Given Documented by: Nebivolol (Bystolic -) 5 mg PO DAILY [facility] Last Admin: 09/06/19 09:42 Dose: 5 mg Documented by: Ondansetron HCl (Zofran Injection) 4 mg IVPUSH Q4H PRN PRN Reason: NAUSEA AND/OR VOMITING Oxycodone HCl (Roxicodone -) 5 mg PO Q4H PRN PRN Reason: PAIN LEVEL 1-5 Last Admin: 09/06/19 10:45 Dose: 5 mg Documented by: Polyethylene Glycol (Miralax (For Daily Use) -) 17 gm PO DAILY [facility] Last Admin: 09/06/19 09:43 Dose: 17 grams Documented by: - Objective Vital Signs: Vital Signs Temperature 98.4 F 09/06/19 08:22 Pulse Rate 85 09/06/19 08:22 Respiratory Rate 20 09/06/19 09:00 Blood Pressure 168/82 09/06/19 08:22 O2 Sat by Pulse Oximetry (%) 97 09/06/19 09:00 Constitutional: Yes: Calm Eyes: Yes: Conjunctiva Clear HENT: Yes: Atraumatic Neck: Yes: Supple Cardiovascular: Yes: S1, S2 Respiratory: Yes: CTA Bilaterally Gastrointestinal: Yes: Normal Bowel Sounds, Soft, Abdomen, Obese Musculoskeletal: Yes: WNL Edema: No Neurological: Yes: Oriented Psychiatric: Yes: Oriented Labs: CBC, BMP 09/06/19 05:40 09/06/19 05:40 Problem List - Problems (1) HAROLDO (acute kidney injury) Code(s): N17.9 - ACUTE KIDNEY FAILURE, UNSPECIFIED (2) Anemia Code(s): D64.9 - ANEMIA, UNSPECIFIED (3) Hyperkalemia Code(s): E87.5 - HYPERKALEMIA (4) S/P laparoscopic sleeve gastrectomy Code(s): Z98.84 - BARIATRIC SURGERY STATUS Assessment/Plan Current Medications Generic Name Dose Route Start Last Admin Trade Name Freq PRN Reason Stop Dose Admin Atorvastatin Calcium 20 mg 09/06/19 22:00 Lipitor - PO HS [facility] Hydromorphone HCl 1 mg 09/05/19 20:54 09/06/19 02:57 Dilaudid Vial - IVPB 1 mg Q6H PRN Administration PAIN LEVEL 6-10 Famotidine/Sodium Chloride 20 mg in 50 mls @ 100 mls/hr 09/04/19 22:00 09/06/19 09:42 Pepcid 20 Mg Premixed Ivpb - IVPB 100 mls/hr BID [facility] Administration Sodium Chloride 1,000 mls @ 125 mls/hr 09/05/19 13:00 09/05/19 13:35 1/2 Normal Saline IV 125 mls/hr ASDIR [facility] Administration Metoclopramide HCl 10 mg 09/04/19 17:15 09/06/19 10:48 Reglan Injection - IVPUSH Not Given Q6H [facility] Nebivolol 5 mg 09/06/19 10:00 09/06/19 09:42 Bystolic - PO 5 mg DAILY [facility] Administration Ondansetron HCl 4 mg 09/04/19 17:01 Zofran Injection IVPUSH Q4H PRN NAUSEA AND/OR VOMITING Oxycodone HCl 5 mg 09/05/19 20:55 09/06/19 10:45 Roxicodone - PO 5 mg Q4H PRN Administration PAIN LEVEL 1-5 Polyethylene Glycol 17 gm 09/05/19 11:45 09/06/19 09:43 Miralax (For Daily Use) - PO 17 grams DAILY [facility] Administration Impression 1. HAROLDO 2. hyperkalemia 3. htn 4. dm 5. 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
--- NOTE | 2019-09-06 12:00 | DS ---
Physical Examination Vital Signs: Vital Signs Temperature 98.4 F 09/06/19 08:22 Pulse Rate 85 09/06/19 08:22 Respiratory Rate 20 09/06/19 09:00 Blood Pressure 168/82 09/06/19 08:22 O2 Sat by Pulse Oximetry (%) 97 09/06/19 09:00 Labs: CBC, BMP 09/06/19 05:40 09/06/19 05:40 Discharge Summary Reason For Visit: MORBID OBESITY Current Active Problems HAROLDO (acute kidney injury) (Acute) Anemia (Acute) Elevated LFTs (Acute) Hyperkalemia (Acute) S/P laparoscopic sleeve gastrectomy (Acute) Condition: Stable - Instructions Diet, Activity, Other Instructions: Postoperative Instructions for Bariatric Surgery Activity: Resume normal everyday activity as tolerated. You may walk and climb stairs without any limitation. We encourage you to walk as often as you can Do not lift anything more than 10 pounds for 8 weeks. At that time, you can return to full activity, including the gym, without limitation. Do not drive a motor vehicle while taking prescribes narcotic pain medication. Wound Care: If you have a bandage in place, leave it on for 3 days. At that time you may remove the outer bandage. If there are strips of tape on the skin after removing the outer bandage, leave them in place. They will fall off by themselves. Do not remove them. If there is clear glue on the skin after removing the outer bandage, leave it in place. Do not pick at it or peel it off. You may shower after taking the outer bandage off, 3 days after your surgery. If incisions become red, warm or open, please call the office. Diet: Continue a sugar-free, non-carbonated Clear liquid diet three times a day for the first week-Stage I diet. In addition, you should drink 8 ounces of water every hour. When drinking, sips should be slow and steady, not large and quick. After the first week, call the office to be advanced to the next dietary stage. Do not advance stages until instructed. Your diet will be advanced over the phone each week. Medications/Pain Management: You may resume previous medications unless told otherwise. The pills may be swallowed whole or broken if scored. You may take the prescribed narcotic pain medication as needed. If the narcotic medication is not needed for pain control, you may take Tylenol. Avoid all other pain medications including Advil, Ibuprofen, Motrin, Aspirin, Naprosyn, Aleve, Celebrex. You will receive Pepcid. Please take this twice a day as prescribed. Dizziness,Headaches/Gas Pain: Make sure you are getting enough fluids daily. Patients on diuretics or water pills may need medication adjusted. Some fluids s uch as broth or Gatorade may help. Gas pains are common in the first few weeks after surgery. At times they can be worse than surgical pain. Walking can help. You can also use Mylanta, Maalox, or Gas-X. Vomiting/Nausea: This may occur if you eat too fast, don't chew, or eat too much. Go back to fluids. If the vomiting or nausea persists, call the office. Constipation/Diarrhea: You may experience a change in bowel habits. Many things affect this, including a decrease in food intake, not enough fluid and taking pain medication. Some people experience diarrhea after the barium swallow in x-ray. If either persist, call the office. Follow up: Call the office for an appointment 2 weeks after your surgical procedure. Referrals: Edie Pierre MD [Staff Physician] - Disposition: HOME - Home Medications Comprehensive Discharge Medication List: Ambulatory Orders Aspirin [Aspirin EC] 81 mg PO DAILY 08/29/19 Atorvastatin Ca [Lipitor] 20 mg PO HS 08/29/19 Cyanocobalamin (Vitamin B-12) [Vitamin B12] 1 tab PO DAILY 08/29/19 Gabapentin 900 mg PO HS 08/29/19 Gabapentin [Neurontin -] 300 mg PO BID 08/29/19 Insulin Aspart [Novolog] 20 unit SQ AC 08/29/19 Insulin Glargine,Hum.rec.anlog [Lantus] 50 iu SQ HS 08/29/19 Multivitamins [Tab-A-Vit -] 1 tab PO DAILY 08/29/19 Oxycodone HCl [Oxaydo] 5 mg PO QID PRN #30 tablet.orl MDD 4 09/05/19 Famotidine [Pepcid -] 40 mg PO DAILY #30 tablet 09/06/19 Nebivolol [Bystolic -] 5 mg PO DAILY #30 tab 09/06/19
[2019-09-06] MEDS ORDERED: ATORVASTATIN CA 20 MG TABLET (FP) PO SCH (22:00)
--- NOTE | 2019-09-08 17:12 | PATH ---
Surgical Pathology Report Patient Name: ABEL SHANE Med. Rec. #: [id number] /Age/Gender: 1960 (Age: 58) / F Account: [id number] Location: 4 W TELEMETRY U Taken: 09/04/2019 Received: 09/05/2019 Reported: 09/08/2019 Physicians: Juma Rangel M.D. Specimen(s) Received A: GREATER CURVATURE STOMACH B: LIVER BIOPSY Clinical History Morbid obesity Final Diagnosis A. Stomach, greater curvature, laparoscopic vertical SLEEVE gastrectomy: Portion of stomach with minimal chronic INFLAMMATION. Immunohistochemical STAIN FOR H. Pylori is negative. B. LIVER, BIOPSY: LIVER PARENCHYMA WITH MINIMAL STEATOSIS (<1%). RARE IRON STAINING WITHIN KUPFFER CELLS HIGHLIGHTED BY IRON STAIN. NO INCREASE IN FIBROSIS ON PERFORMED TRICHROME STAIN. Electronically Signed Tuyet Ragland M.D. Gross Description A. Received in formalin, labeled "greater curvature of stomach," is a 9 x 1 cm. portion of stomach with a stapled margin of resection. The serosa is boone-jimenez with minimal attached fat. The mucosa is boone-pink with normal folds. No mucosal masses are identified. Mortgage Assistant section is submitted in one cassette. B. Received in formalin labeled "liver" is a boone liver wedge measuring 2.5 x 1.5 x 1 cm. The specimen is bisected entirely submitted one cassette.
== END 2019-09-06 12:32 | disposition home or self-care (01) | DRG 620 ==
LOC: J2C 09:37 → J4W 20:04
PROVIDERS: ADMIT Surgery; ATTEND Surgery
PROC: 0DNW4ZZ Release Peritoneum, Percutaneous Endoscopic Approach (ICD-10-PCS; 2019-09-04)
PROC: 0FB24ZX Excision of Left Lobe Liver, Percutaneous Endoscopic Approach, Diagnostic (ICD-10-PCS; 2019-09-04)
PROC: 0DJ04ZZ Inspection of Upper Intestinal Tract, Percutaneous Endoscopic Approach (ICD-10-PCS; 2019-09-04)
PROC: 0DB64Z3 Excision of Stomach, Percutaneous Endoscopic Approach, Vertical (ICD-10-PCS; principal; 2019-09-04 11:30)
DX: E66.01 Morbid (severe) obesity due to excess calories (principal); N17.9 Acute kidney failure, unspecified; Z68.42 Body mass index [BMI] 45.0-49.9, adult; E11.9 Type 2 diabetes mellitus without complications; I25.10 Atherosclerotic heart disease of native coronary artery without angina pectoris; K66.0 Peritoneal adhesions (postprocedural) (postinfection); R16.0 Hepatomegaly, not elsewhere classified; H54.40 Blindness, one eye, unspecified eye; R79.89 Other specified abnormal findings of blood chemistry; D64.9 Anemia, unspecified; E87.5 Hyperkalemia; I10 Essential (primary) hypertension; Z89.429 Acquired absence of other toe(s), unspecified side
CPT/HCPCS: 36415; 74240-TC-FY; 80048; 80053; 81003; 82436; 82565; 82607; 82728; 82947; 82962; 83036; 83540; 83550; 84133; 84300; 84439; 84443; 85025; 85027; 86850; 86900; 86901; 88305-TC; 94760; 97116-GP; 97161-GP; J0131; J7030